=== PATIENT | female | born 1950 | race American Indian/Alaskan Native ===

== ENCOUNTER 2018-11-16 08:36 | Outpatient (CLI) | payer MEDICARE ==
--- NOTE | 2018-11-16 16:32 | Magnetic Resonance Report ---
BILATERAL BREAST MRI WITHOUT AND WITH CONTRAST: 11/16/18 08:36:00 CLINICAL: Recurrent right breast cancer. She underwent a right total mastectomy for stage II right breast cancer, infiltrating mucinous carcinoma in September 2015. She underwent adjuvant chemotherapy and is taking anastrozole. Biopsy of a right chest wall mass on 11/03/18 revealed infiltrating lobular carcinoma grade 3. COMPARISON:08/27/15 MRI. TECHNIQUE: Axial 1.0-mm T1 without, axial high resolution 2.0-mm T2 and axial 1.0-mm dynamic Vibrant high-resolution postcontrast T1 fat saturation sequences on a 1.5 Eda magnet. The examination was performed with an 8 channel dedicated [employer] breast coil. Post processing with CAD and subtraction was performed on an [employer] workstation. 18.0 cc of Multihance was injected without incident for the contrast portion of the exam. Consent was obtained prior to the administration of the contrast. FINDINGS: Right: Redundant soft tissue of the chest wall and an irregular enhancing mass contiguous to the pectoral muscle. A thin fat plane separates the mass from the pectoral muscle on T2 sequences. The mass measures 6.2 x 4.7 x 3.4 cm and contains a biopsy clip. It demonstrates heterogeneous enhancement with mixed kinetics, 188% peak enhancement, 24% type I persistent, 58% type II plateau and 18% type III washout waveforms. One suspicious right axillary lymph node with an irregular cortex measures 1.0 cm. No suspicious internal mammary lymph nodes. Left: Minimal background parenchymal enhancement. No mass or suspicious enhancement. No suspicious left axillary or left internal mammary lymph nodes. IMPRESSION: 1. A 6.2 cm x 4.7 cm x 3.4 cm right chest wall recurrent breast cancer. 2. One suspicious right axillary lymph node. 3. Negative left breast. RIGHT BI-RADS 6 -- Known Cancer LEFT BI-RADS 1 - - Negative
== END 2018-11-16 08:37 | disposition home or self-care (01) ==
LOC: SPVIMAG 08:36
PROVIDERS: ATTEND Surgery
DX: C50.411 Malignant neoplasm of upper-outer quadrant of right female breast (principal)
CPT/HCPCS: A9577; C8908; 77049

== ENCOUNTER 2018-12-11 08:52 | Outpatient (CLI) | payer MEDICARE ==
--- NOTE | 2018-12-11 11:07 | Ultrasound Report ---
THYROID ULTRASOUND:12/11/18 08:52:00 CLINICAL: History of right breast cancer with a recent chest wall recurrence and left thyroid nodules identified on recent PET/CT. History of right thyroidectomy. COMPARISON: [facility] PET/CT 11/17/18. The report describes a multinodular left thyroid lobe with a single FDG avid nodule FINDINGS: High-resolution ultrasound demonstrated an enlarged multinodular left thyroid. The largest thyroid nodule is a mildly heterogeneous slightly hypoechoic mass in the midportion of the gland measuring 2.7 x 1.4 x 2.1 cm. A second more medial nodule with similar echo pattern in the mid left thyroid lobe measures 1.2 x 0.9 x 0.9 cm. Both of these demonstrate a relatively large amount of diffuse blood flow by color Doppler. An inferior solid hypoechoic left thyroid nodule measures 1.7 x 1.5 x 1.4 cm and demonstrates no central blood flow by color Doppler. No right thyroid lobe. IMPRESSION: An enlarged multinodular left thyroid lobe with a dominant 2.7 cm nodule. This probably correlates with the FDG avid nodule. Recommend either close followup with a repeat ultrasound in 6 months to reevaluate the size of nodules or ultrasound-guided FNA of the two largest left nodules.
== END 2018-12-11 08:53 | disposition home or self-care (01) ==
LOC: SPVWC 08:52
PROVIDERS: ATTEND Surgery
DX: E04.2 Nontoxic multinodular goiter (principal); C50.411 Malignant neoplasm of upper-outer quadrant of right female breast
CPT/HCPCS: 76536

== ENCOUNTER 2018-12-19 07:55 | Day surgery (SDC) | payer MEDICARE ==
[2018-12-19] MEDS ORDERED: XYLOCAINE 1% 20 mL ONE (09:38)
--- NOTE | 2018-12-19 10:38 | Short Stay Summary ---
Short Stay Documentation Date of service: 12/19/18 Narrative H&P: left thyroid nodules - History Principal diagnosis: Left thyroid nodules Past Medical History: other (breast cancer, goiter...s/p right thyroidectomy) - Allergies and Medications Current Medications: Allergies chocolate flavor Allergy (Unverified 12/19/18 07:56) Itching Home Medications Medication Instructions Recorded Confirmed Last Taken Type Anastrozole (Nf) [Arimidex (Nf)] 1 mg PO DAILY 12/19/18 12/19/18 12/18/18 History 1mg Cholecalciferol (Vitamin D3) 1 tab PO DAILY 12/19/18 12/19/18 12/18/18 History [Vitamin D3] 1 tab Meloxicam 15 mg PO DAILY 12/19/18 12/19/18 12/18/18 History 15mg Turmeric 1 tab PO DAILY 12/19/18 12/19/18 12/18/18 History 1 tab Vitamin B-12 1 tab PO DAILY 12/19/18 12/19/18 12/18/18 History 1 tab hydroCHLOROthiazide [HCTZ] 25 mg PO DAILY 12/19/18 12/19/18 12/18/18 History 25mg - Physical exam General appearance: no acute distress HEENT: Atraumatic, Mucous membr. moist/pink, Other (no obvious cervical mass on inspection) - Brief post op/procedure progress note Date of procedure: 12/19/18 Pre-op diagnosis: left thyroid nodules Post-op diagnosis: same Procedure: US thyroid FNA x 2 Anesthesia: local Findings: two dominant nodules in left thyroid for FNA Surgeon: BROOKE MATHEWS Estimated blood loss: none Pathology: list (FNA x 2 on two thryoid nodules) Specimen disposition: to lab Condition: stable - Hospital course Hospital course: uneventful - Disposition Condition at discharge: Good Disposition: DC-01 TO HOME OR SELFCARE Short Stay Discharge Plan Follow up with: ARVIN ANGULO MD [Primary Care Provider] - 7 Days
[2018-12-19 11:07] VITALS: BP 140/60
--- NOTE | 2018-12-19 11:48 | Ultrasound Report ---
ULTRASOUND BIOPSY THYROID HISTORY: Left thyroid nodules, breast cancer, goiter, previous right thyroidectomy. DESCRIPTION OF PROCEDURE: Informed consent was obtained. Sterile technique was utilized. 1% lidocaine for skin anesthesia. The ultrasound thyroid scan dated 12/11/18 was reviewed. 2 nodules were selected for fine needle aspiration. Within the mid left thyroid lobe, fine needle aspiration was performed on a 2.9 x 1.4 x 1.9 cm solid nodule. Within the inferior left thyroid lobe, fine needle aspiration was performed on a 1.8 x 1.7 x 1.5 cm hypoechoic, complex nodule. The samples were deemed adequate by the pathologist on site. No complications. IMPRESSION: Successful ultrasound-guided fine needle aspiration of the 2 dominant nodules in the mid and inferior left thyroid lobe as described.
== END 2018-12-19 11:12 | disposition home or self-care (01) ==
LOC: CATHLABREC 07:55 → EDSTATUS 09:00 → CATHLABREC 11:12
PROVIDERS: ATTEND Surgery
DX: E04.1 Nontoxic single thyroid nodule (principal); E04.9 Nontoxic goiter, unspecified; C50.411 Malignant neoplasm of upper-outer quadrant of right female breast; F17.210 Nicotine dependence, cigarettes, uncomplicated; I10 Essential (primary) hypertension; M19.90 Unspecified osteoarthritis, unspecified site; Z85.89 Personal history of malignant neoplasm of other organs and systems; Z79.899 Other long term (current) drug therapy; Z98.42 Cataract extraction status, left eye; Z98.41 Cataract extraction status, right eye; Z90.11 Acquired absence of right breast and nipple; Z98.51 Tubal ligation status; Z90.710 Acquired absence of both cervix and uterus; Z87.442 Personal history of urinary calculi; Z98.890 Other specified postprocedural states; Z88.8 Allergy status to other drugs, medicaments and biological substances
CPT/HCPCS: 10005; 60100; 76942; 88112; 88172; 88173; 88305

== ENCOUNTER 2019-01-17 05:57 | Observation (INO) | payer MEDICARE ==
[2019-01-17] MEDS ORDERED: NACL BACTERIOSTATIC INFILTRATI ONE (06:35)
[2019-01-17] MEDS ORDERED: LACTATED RINGERS 1,000 ML IV SCH ×2 (07:00→13:00)
[2019-01-17] MEDS ORDERED: XYLOCAINE 1% 20 mL ONE ×2 (07:12→07:43)
[2019-01-17] MEDS ORDERED: MARCAINE 0.25% INFILTRATI ONE (07:12)
[2019-01-17] MEDS ORDERED: ANCEF/STERILE WATER 2 GM/20 ML IV NR (07:20)
[2019-01-17] MEDS ORDERED: ZOFRAN ONE (07:31)
[2019-01-17] MEDS ORDERED: SUBLIMAZE ONE ×2 (07:31→10:49)
[2019-01-17] MEDS ORDERED: DECADRON ONE ×2 (07:31→07:43)
[2019-01-17] MEDS ORDERED: XYLOCAINE MPF 2% ONE (07:31)
[2019-01-17] MEDS ORDERED: DIPRIVAN 10 MG/ML IV ONE (07:32)
--- NOTE | 2019-01-17 07:39 | Anesthesia Consultation ---
Anesthesia Consult and Med Hx Date of service: 01/17/19 - Airway Anesthetic Teeth Evaluation: Dentures ROM Head & Neck: Adequate Mental/Hyoid Distance: Adequate Mallampati Class: Class II Intubation Access Assessment: Good - Pulmonary Exam CTA: Yes - Cardiac Exam Cardiac Exam: No Murmur - Pre-Operative Health Status ASA Pre-Surgery Classification: ASA3 Proposed Anesthetic Plan: General Nerve Block: PEC Block - Pulmonary Hx Smoking: Yes (1/2 PPD X 40 YRS) Hx Asthma: Yes (asthma as a child) - Cardiovascular System Hx Hypertension: Yes (2009) - Central Nervous System Hx Psychiatric Problems: No - Hematic Hx Anemia: No - Other Systems Hx Alcohol Use: Yes (OCCA WINE) Hx Substance Use: No Hx Cancer: Yes
[2019-01-17] MEDS ORDERED: MARCAINE 0.5% INFILTRATI ONE (07:42)
[2019-01-17] MEDS ORDERED: NEURONTIN ONE ×2 (07:44→07:59)
[2019-01-17] MEDS ORDERED: VERSED ONE (07:44)
[2019-01-17] MEDS ORDERED: PEPCID IV ONE (07:45)
[2019-01-17] MEDS ORDERED: PEPCID IV NR (09:00)
[2019-01-17] MEDS ORDERED: VERSED IV NR (09:00)
[2019-01-17] MEDS ORDERED: NEURONTIN PO NR (09:00)
[2019-01-17] MEDS ORDERED: WATER FOR IRRIG STERILE IR ONE (09:11)
[2019-01-17] MEDS ORDERED: LACTATED RINGERS 1,000 ML ONE (10:42)
--- NOTE | 2019-01-17 11:17 | Mammography Report ---
SPECIMEN RADIOGRAPH RIGHT BREAST: 01/17/19 05:57:00 CLINICAL: Surgical excision of recurrent cancer of the right chest wall.. FINDINGS: An irregular mass with a biopsy clip is identified within the specimen. The mass measures approximately 6 x 6 cm. Surgical clips are identified at the margin of the specimen.
[2019-01-17] MEDS ORDERED: ROBINUL ONE (11:48)
[2019-01-17] MEDS ORDERED: ZOFRAN IV PRN (12:04)
[2019-01-17] MEDS ORDERED: PERCOCET 5/325 PO PRN (12:04)
[2019-01-17] MEDS ORDERED: SODIUM CHLORIDE FLUSH SYRINGE 10 ML IV PRN (12:04)
[2019-01-17] MEDS ORDERED: BENADRYL PO PRN (12:04)
[2019-01-17] MEDS ORDERED: REGLAN PO PRN (12:04)
[2019-01-17] MEDS ORDERED: TYLENOL PO PRN (12:04)
--- NOTE | 2019-01-17 12:04 | Short Stay Summary ---
Short Stay Documentation Date of service: 01/17/19 - History H&P: obtained from office - Allergies and Medications Current Medications: Allergies chocolate flavor Allergy (Intermediate, Verified 01/15/19 17:25) Anaphylaxis doxepin Allergy (Verified 01/17/19 07:09) Itching propoxyphene [From Darvocet-N] Allergy (Verified 01/15/19 17:25) Itching Home Medications Medication Instructions Recorded Confirmed Last Taken Type Anastrozole (Nf) [Arimidex (Nf)] 1 mg PO DAILY 12/19/18 01/15/19 01/15/19 History Meloxicam 15 mg PO DAILY 12/19/18 01/15/19 01/07/19 History hydroCHLOROthiazide [HCTZ] 25 mg PO DAILY 12/19/18 01/15/19 01/15/19 History Acetaminophen [Tylenol Arthritis] 650 mg PO Q6H PRN 01/15/19 01/17/19 01/15/19 History Acetaminophen [Tylenol Extra 500 mg PO Q4H PRN 01/15/19 01/17/19 01/15/19 History Strength] Cholecalciferol Vit D3 [Vitamin D3 1,000 unit PO QDAY 01/15/19 01/15/19 01/15/19 History 1,000 UNIT TAB] Cyanocobalamin (Vitamin B-12) 1,000 mcg PO QDAY 01/15/19 01/15/19 01/15/19 H istory [Vitamin B-12] Turmeric Root Extract [Turmeric 500 mg PO QDAY 01/15/19 01/15/19 01/15/19 History Curcumin] Active Medications Cefazolin Sodium (Ancef/Sterile Water 2 Gm/20 Ml) 2 gm IV PREOP NR Stop: 01/17/19 15:00 Celecoxib (Celebrex) 200 mg PO PREOP NR Stop: 01/17/19 21:00 Famotidine (Pepcid) 20 mg IV PREOP NR Stop: 01/17/19 21:00 Gabapentin (Neurontin) 600 mg PO PREOP NR Stop: 01/17/19 21:00 Lactated Ringer's (Lactated Ringers) 1,000 mls @ 100 mls/hr IV DIRECT ELISSA Last Admin: 01/17/19 07:00 Dose: 100 mls/hr Documented by: Midazolam HCl (Versed) 2 mg IV PREOP NR Stop: 01/17/19 21:00 - Brief post op/procedure progress note Date of procedure: 01/17/19 Pre-op diagnosis: Right chest wall recurrent breast cancer Post-op diagnosis: same Procedure: Right chest wall mass excision with ALND Anesthesia: GETA Findings: Right chest wall mass at least 5 cm and adherent to muscle with ALND performed as well Surgeon: POLLY ROE Estimated blood loss: 50-100ml Pathology: list (right chest wall mass, ALND) Specimen disposition: to lab Condition: stable - Disposition Condition at discharge: Good Disposition: DC/TX-02 SHRT-TRM GEN HOSP IP Short Stay Discharge Plan Activity: other (no mobility of right arm-wear sling; no heavy lifting) Diet: regular Wound: keep clean and dry Follow up with: ARVIN ANGULO MD [Primary Care Provider] - 7 Days POLLY ROE MD [Staff Physician] - 7 Days
[2019-01-17] MEDS ORDERED: MORPHINE IV PRN (12:05)
--- NOTE | 2019-01-17 15:52 | Operative Report ---
Operative Report Operative Report: Operative Report: January 17, 2019 Preoperative diagnosis: Recurrent breast cancer of the upper outer right chest wall Postoperative diagnosis: Same Procedure: Right chest wall excision of chest wall mass of the upper outer quadrant and ALND Surgeon: Amberly Contreras MD Anesthesia: General Findings: Right chest wall mass adherent to lateral pectoralis muscle Complications: None Drains: x2 19 Fr LOKESH EBL: 50 ml Disposition: PACU in good condition Indications for operative procedure: This is a 68 year old lady with recurrent right breast cancer of the upper outer chest wall-chest wall mass of 4-5 cm. She underwent a right total mastectomy with SLNB by Dr. Nichols in 2016 for Stage I breast cancer and completed adjuvant chemotherapy due to high Oncotype DX score. Recommendations are to proceed with right chest wall mass excision and probable ALND. She understands the role of adjuvant radiation therapy and that chemotherapy may be recommended. She wished to proceed with the above procedure. Procedure in detail: Anesthesia placed a right pectoral block. Patient was then taken to the operating room. Gen. anesthesia was administered. The right chest was prepped and draped in the normal sterile operative fashion. Timeout was performed. Attention was then taken towards the right chest, palpable 4-5 cm chest wall mass of the upper outer chest was noted with mass closely adherent to skin. Ultrasound was used as well. A lateral skin incision was made with a 15 bl cassi knife encompassing the mass and skin and dissection taken down to subcutaneous tissues. First began raising of the superior flap to least 2 cm superior to the mass to the level of the clavicle with dissection taken down posterior to the pectoralis muscle followed by raising of the medial flap to least 2 cm medial from the mass dissecting down to the pectoralis muscle followed by raising of the inferior flap 2 cm from the mass and dissection taken down to the pectoralis muscle. The mass noted to be adherent to the pectoralis major and minor muscle with muscle resected in order to remove the mass. Attention was then taken towards the mass that was adherent to the surrounding tissues superior laterally and immediately inferior to the axillary vein. The mass was carefully dissected down inferiorly from the axillary vein then followed by removal of lymph nodes. Dissection was taken very carefully to ensure the long thoracic nerve and thoracodorsal bundle were not injured. Both nerves were noted and were unharmed. Then proceeded with axillary lymph node dissection with nodes taken inferior to the axillary vein, mediallay from the dorsal bundle and laterally from the long thoracic nerve and inferior from the latissimus dorsi muscle. Bulky nodes were present and attached to chest wall mass. Patient with prior SLNB in 2016 with 5 lymph nodes removed. The mass was somewhat adherent within the axilla that was appropriately dissected free and removed. Significant fibrotic tissue was adherent superiorly and inferior to the axillary vein with dissection taken very carefully to assure that the vein was not injured. The upper inner portion of the mass was noted to be adherent posteriorly to the pectoralis minor muscle with muscle resected to ensure en bloc removal with the aide of the bovie cautery (resection of pectoralis major and minor muslces). The mass was sent to radiology of present illness and pathology. Hemostasis was obtained. The axillary and chest wall cavity was appropriately irrigated and suctioned. Hemostasis was noted. 2 drains were placed one in the axilla and one within the chest wall. Skin flaps were then appropriately raised superiorly to the clavicle, medially to the sternum and inferiorly to the superior portion of the abdominal wall to allow skin closure. The subcutaneous tissues were approximated and closed with interrupted 2-0 V icryl and the skin brought together and closed using a running 4-0 Monocryl followed by placement of PICCO wound VAC dressing. Patient's arm was placed into a sling to ensure immobility to ensure no wound breakdown. The mass was noted to be at least 5-6 cm with chest wall involvment of the lateral pectoralis muscles. She tolerated surgery very well and was awakened from anesthesia without any c omplications and transferred to PACU in good condition.
[2019-01-17] MEDS: COLACE PO SCH (21:54)
--- NOTE | 2019-01-18 08:00 | Progress Note ---
Assessment and Plan This is a 68 year old lady POD#1 right chest wall mass-recurrent breast cancer wide local excision and ALND. 1. Pain in good control. 2. Right chest incision healing well. 3. LOKESH drain education. 4. OOB to hallway. 5. D/C planning for today. Subjective Date of service: 01/18/19 Principal diagnosis: Recurrent right chest wall breast cancer Interval history: POD#1 right chest wall mass wide local excision with ALND Objective - Constitutional Vitals: Vital Signs - 12hr 01/17/19 01/17/19 01/18/19 20:00 20:30 00:49 Temperature 98.3 F 98.4 F Pulse Rate 62 62 Respiratory 16 20 20 Rate Blood Pressure 114/53 Blood Pressure 105/56 [Left] O2 Sat by Pulse 97 97 Oximetry 01/18/19 04:50 Temperature 98.0 F Pulse Rate 54 L Respiratory 20 Rate Blood Pressure Blood Pressure 115/53 [Left] O2 Sat by Pulse 96 Oximetry General appearance: Present: no acute distress - EENT Eyes: PERRL, EOM intact ENT: hearing intact, clear oral mucosa, dentition normal Ears: bilateral: normal - Neck Neck: supple, normal ROM - Respiratory Respiratory effort: normal Respiratory: bilateral: CTA - Breasts Breasts: other (right incision with PICCO dressing intact, LOKESH drains to bulb suction; no hematoma) - Cardiovascular Rhythm: regular Extremities: no ischemia, pulses intact, pulses symmetrical, No edema, normal temperature, normal color, Full ROM - Gastrointestinal General gastrointestinal: Present: soft, non-tender, non-distended Rectal Exam: deferred - Genitourinary Female genitourinary: deferred - Integumentary Integumentary: clear, warm, dry - Musculoskeletal Musculoskeletal: strength equal bilaterally - Neurologic Neurologic: CNII-XII intact, moves all extremities, gait normal - Psychiatric Psychiatric: appropriate mood/affect, intact judgment & insight, memory intact, cooperative Medications & Allergies - Medications Allergies/Adverse Reactions: Allergies chocolate flavor Allergy (Intermediate, Verified 01/15/19 17:25) Anaphylaxis doxepin Allergy (Verified 01/17/19 07:09) Itching propoxyphene [From Darvocet-N] Allergy (Verified 01/15/19 17:25) Itching Home Medications: Home Medications Medication Instructions Recorded Confirmed Last Taken Type Anastrozole (Nf) [Arimidex (Nf)] 1 mg PO DAILY 12/19/18 01/15/19 01/15/19 History Meloxicam 15 mg PO DAILY 12/19/18 01/15/19 01/07/19 History hydroCHLOROthiazide [HCTZ] 25 mg PO DAILY 12/19/18 01/15/19 01/15/19 History Acetaminophen [Tylenol Arthritis] 650 mg PO Q6H PRN 01/15/19 01/17/19 01/15/19 History Acetaminophen [Tylenol Extra 500 mg PO Q4H PRN 01/15/19 01/17/19 01/15/19 History Strength] Cholecalciferol Vit D3 [Vitamin D3 1,000 unit PO QDAY 01/15/19 01/15/19 01/15/19 History 1,000 UNIT TAB] Cyanocobalamin (Vitamin B-12) 1,000 mcg PO QDAY 01/15/19 01/15/19 01/15/19 History [Vitamin B-12] Turmeric Root Extract [Turmeric 500 mg PO QDAY 01/15/19 01/15/19 01/15/19 History Curcumin] oxyCODONE /ACETAMINOPHEN [Percocet 1 tab PO Q6HR PRN #25 tablet 01/18/19 Unknown Rx 5/325] Active Medications: Generic Name Dose Route Start Last Admin Trade Name Freq PRN Reason Stop Dose Admin Acetaminophen 650 mg 01/17/19 12:04 Tylenol PO Q6H PRN Pain MILD(1-3)/Fever >100.5/HAYWOOD Diphenhydramine HCl 25 mg 01/17/19 12:04 Benadryl PO Q8H PRN Itching Docusate Sodium 100 mg 01/17/19 22:00 01/17/19 21:54 Colace PO 100 mg BID ELISSA Administration Lactated Ringer's 1,000 mls @ 100 mls/hr 01/17/19 07:00 01/17/19 07:00 Lactated Ringers IV 100 mls/hr DIRECT ELISSA Administration Lactated Ringer's 1,000 mls @ 125 mls/hr 01/17/19 13:00 Lactated Ringers IV DIRECT ELISSA Metoclopramide HCl 10 mg 01/17/19 12:04 Reglan PO Q6H PRN Nausea And Vomiting Morphine Sulfate 2 mg 01/17/19 12:05 Morphine IV Q4H PRN Pain, Moderate (4-6) Ondansetron HCl 4 mg 01/17/19 12:04 Zofran IV Q8H PRN N/V unrelieved by Chasity Oxycodone/Acetaminophen 1 tab 01/17/19 12:04 Percocet 5/325 PO Q6H PRN Pain, Moderate (4-6) Sodium Chloride 10 ml 01/17/19 12:04 Sodium Chloride Flush Syringe 10 Ml IV PRN PRN LINE FLUSH
[2019-01-18] MEDS: COLACE PO SCH (09:24)
[2019-01-18 13:13] VITALS: BP 135/45
== END 2019-01-18 13:25 | disposition home or self-care (01) ==
LOC: OR 05:57 → OB 12:04
PROVIDERS: ADMIT Surgery; ATTEND Surgery
DX: C79.81 Secondary malignant neoplasm of breast (principal); C80.1 Malignant (primary) neoplasm, unspecified; I10 Essential (primary) hypertension; K21.9 Gastro-esophageal reflux disease without esophagitis; M19.019 Primary osteoarthritis, unspecified shoulder; E78.2 Mixed hyperlipidemia; F17.210 Nicotine dependence, cigarettes, uncomplicated
CPT/HCPCS: 00400; 19120; 38500; 64450; 76098; 88307; 88341; 88342; G0378; J0690; J0735; J1100; J2250; J2405; J2704; J3010; J7120

== ENCOUNTER 2019-03-07 05:54 | Day surgery (SDC) | payer MEDICARE ==
[~2019-03-07 05:54] MED LIST: ANCEF/STERILE WATER 2 GM/20 ML 2 GM/20 ML SYRINGE IV NR
[2019-03-07] MEDS ORDERED: ANCEF/STERILE WATER 2 GM/20 ML 2 GM/20 ML SYRINGE IV ONE (06:37)
[2019-03-07] MEDS ORDERED: NACL BACTERIOSTATIC INFILTRATI ONE (06:37)
[2019-03-07] MEDS ORDERED: LACTATED RINGERS 1,000 ML IV SCH (07:00)
[2019-03-07 07:29] LABS: Basophils % (Auto) 0.9 % (0.0-1.8); Eosinophils # (Auto) 0.1 K/mm3 (0.0-0.4); Eosinophils % (Auto) 1.8 % (0.0-4.3); Hematocrit 37.9 % (30.3-42.9); Hemoglobin 13.2 gm/dl (10.1-14.3); Lymphocytes # (Auto) 1.3 K/mm3 (1.2-5.4); Lymphocytes % (Auto) 27.8 % (13.4-35.0); Mean Corpuscular HGB Conc 35 % (30-34); Mean Corpuscular Volume 96 fl (79-97); Monocytes # (Auto) 0.5 K/mm3 (0.0-0.8); Monocytes % (Auto) 10.9 % (0.0-7.3); Platelet Count 244 K/mm3 (140-440); Red Blood Count 3.96 M/mm3 (3.65-5.03); Red Cell Distribution Width 12.5 % (13.2-15.2)
[2019-03-07] MEDS ORDERED: MARCAINE 0.25% INFILTRATI ONE ×2 (07:37→08:15)
[2019-03-07] MEDS ORDERED: DIPRIVAN 10 MG/ML IV ONE (07:40)
[2019-03-07] MEDS ORDERED: SUBLIMAZE ONE (07:40)
[2019-03-07] MEDS ORDERED: WATER FOR IRRIG STERILE IR ONE (08:15)
--- NOTE | 2019-03-07 08:31 | Anesthesia Consultation ---
Anesthesia Consult and Med Hx Date of service: 03/07/19 - Airway Anesthetic Teeth Evaluation: Good ROM Head & Neck: Adequate Mental/Hyoid Distance: Adequate Mallampati Class: Class III Intubation Access Assessment: Possibly Difficult (previous GA with LMA 4) - Pulmonary Exam CTA: Yes - Cardiac Exam Cardiac Exam: RRR - Pre-Operative Health Status ASA Pre-Surgery Classification: ASA3 Proposed Anesthetic Plan: General - Pulmonary Hx Smoking: Yes (1/2 PPD X 40 YRS) Hx Asthma: Yes (childhood) Hx Respiratory Symptoms: No COPD: No Hx Sleep Apnea: No - Cardiovascular System Hx Hypertension: Yes Hx Heart Attack/AMI: No Hx Percutaneous Transluminal Coronary Angioplasty (PTCA): No Hx Cardia Arrhythmia: No - Central Nervous System CVA: No Hx Psychiatric Problems: No - Gastrointestinal Hx Gastroesophageal Reflux Disease: No - Endocrine Hx Renal Disease: No Hx Liver Disease: No Hx Insulin Dependent Diabetes: No Hx Non-Insulin Dependent Diabetes: No Hx Thyroid Disease: Yes (hx goiter which was removed. No thyroid supplementation.) - Hematic Hx Anemia: No - Other Systems Hx Alcohol Use: Yes (OCCA WINE) Hx Substance Use: No Hx Cancer: Yes (recurrent breast ca) Hx Obesity: Yes - Additional Comments Anesthesia Medical History Comments: No hx anesthetic complications.
--- NOTE | 2019-03-07 08:31 | Anesthesia Day of Surgery ---
Anesthesia Day of Surgery - Day of Surgery Patient Examined: Yes Patient H&P Reviewed: Yes Patient is NPO: Yes
--- NOTE | 2019-03-07 09:59 | Operative Report ---
Operative Report Operative Report: Operative Report: Date of Service: March 07, 2019 Preoperative diagnosis: Right chest wall recurrent breast cancer with positive margin Postoperative diagnosis:Same Procedure: Right mastectomy flap/excision margin revision Surgeon: Amberly Contreras MD Anesthesia: General Findings: Cephalad and posterior margin revision Complications: None EBL: Minimal Disposition: Plastic surgeon proceeded with skin closure Indications for operative procedure: This is a 68 year old lady with recurrent right breast cancer of the upper outer chest wall with chest wall mass recurrence of 6 cm. She underwent a right total mastectomy with SLNB by Dr. Nichols in 2016 for Stage I breast cancer and completed adjuvant chemotherapy due to high Oncotype DX score. In December 2018 she then underwent right chest wall mass excision with final pathology of cephalad and posterior margins positive. The adjacent subcutaneous tissues from the skin of cephalad margin were positive for tumor of 7 mm of ILCA-infiltration of cells with no mass present. The chest wall mass was excised from pectoralis muslce. Recommendations are to proceed with flap/excision margin revision and additional excision of pectoralis muslce followed by adjuvant XRT. Patient was seen as well by plastic surgery if rotational flap needed at the time of surgery if skin is unable to be approximated and closed. She understands the role of adjuvant radiation therapy and that chemotherapy may be recommended. She wished to proceed with the above procedure. Procedure in detail: The patient was taken to the operating room and was placed supine. General anesthesia was administered. The right chest wall was prepped and draped in the normal sterile operative fashion. Timeout was performed. Skin markings were made and the prior skin incisoin was extended by 9 cm and additional 3 cm of skin was marked for the revised cephalad margin. Skin incision was made through the prior breast incision laterally and then extended by 9 cm with a 15 blade knife. Subcutaneous tissues were opened with the aid of the Bovie cautery and knife. Superior skin flaps were raised to the level of the clavicle and dissection taken down posteriorly to the pectoralis muscle. The inferior cephalad margin was raised as well with dissection taken down posteriorly to the pectoralis muslce. The most lateral margin was lateral to the pectoralis muslce. Cephalad margin was then revised using the Bovie cautery followed by revision of the posterior margin. Cephalad margin was then removed posteriorly from the pectoralis muslce using the bovie cautery. Specimen was marked and sent to pathology. Then proceeded with posterior margin revision with removal of additional pectoralis major muscle. Specimen was marked and sent to pathology. Hemostasis was obtained with the Bovie cautery. Plastic surgery then proceed with skin closure given area not approximating well. Rotational flap was not needed given skin was approximated and closed after additional skin flaps inferiorly were raised from the upper abdomen. She tolerated surgery ve ry well and was awaken from anesthesia without any complications and transported to PACU in good condition.
[2019-03-07] MEDS ORDERED: ZOFRAN ONE (10:14)
[2019-03-07] MEDS ORDERED: DECADRON ONE (10:14)
[2019-03-07] MEDS ORDERED: QUELICIN ONE (10:14)
[2019-03-07] MEDS ORDERED: NEO SYNEPHRINE/NS Syringe(OR USE) IV ONE (10:14)
[2019-03-07] MEDS ORDERED: XYLOCAINE MPF 2% ONE (10:14)
[2019-03-07] MEDS ORDERED: LACTATED RINGERS 1,000 ML ONE (10:14)
[2019-03-07] MEDS ORDERED: ZEMURON IV ONE (10:14)
[2019-03-07] MEDS: DILAUDID IV PRN ×2 (10:28→10:38)
--- NOTE | 2019-03-07 10:42 | Short Stay Summary ---
Short Stay Documentation Date of service: 03/07/19 - History H&P: obtained from office - Allergies and Medications Current Medications: Allergies chocolate flavor Allergy (Intermediate, Verified 03/02/19 14:28) Anaphylaxis doxepin Allergy (Verified 03/02/19 14:28) Itching propoxyphene [From Darvocet-N] Allergy (Verified 03/02/19 14:28) Itching Home Medications Medication Instructions Recorded Confirmed Last Taken Type Anastrozole (Nf) [Arimidex (Nf)] 1 mg PO DAILY 12/19/18 03/07/19 02/28/19 History Meloxicam 15 mg PO DAILY 12/19/18 03/02/19 01/07/19 History hydroCHLOROthiazide [HCTZ] 25 mg PO DAILY 12/19/18 03/07/19 03/06/19 History Acetaminophen [Tylenol Arthritis] 650 mg PO Q6H PRN 01/15/19 03/07/19 02/28/19 History Acetaminophen [Tylenol Extra 500 mg PO Q4H PRN 01/15/19 03/07/19 02/28/19 History Strength] Cholecalciferol Vit D3 [Vitamin D3 1,000 unit PO QDAY 01/15/19 03/02/19 03/06/19 History 1,000 UNIT TAB] Cyanocobalamin (Vitamin B-12) 1,000 mcg PO QDAY 01/15/19 03/02/19 03/06/19 H istory [Vitamin B-12] Turmeric Root Extract [Turmeric 500 mg PO QDAY 01/15/19 03/02/19 03/06/19 History Curcumin] oxyCODONE /ACETAMINOPHEN [Percocet 1 tab PO Q6HR PRN #25 tablet 01/18/19 03/07/19 02/04/19 Rx 5/325] HYDROcodone/APAP 5-325 [Ni[place]rara 1 each PO Q6HR PRN #30 tablet 03/07/19 Unknown Rx 5/325] Active Medications Hydromorphone HCl (Dilaudid) 0.5 mg IV Q10MIN PRN PRN Reason: Pain , Severe (7-10) Stop: 03/07/19 20:00 Last Admin: 03/07/19 10:28 Dose: 0.5 mg Documented by: Cefazolin Sodium (Ancef/Sterile Water 2 Gm/20 Ml) 2 gm in 20 mls @ 80 mls/hr IV PREOP NR; Protocol Stop: 03/07/19 23:00 Lactated Ringer's (Lactated Ringers) 1,000 mls @ 100 mls/hr IV DIRECT ELISSA Last Admin: 03/07/19 06:55 Dose: 100 mls/hr Documented by: - Brief post op/procedure progress note Date of procedure: 03/07/19 Pre-op diagnosis: 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 Post-op diagnosis: same Procedure: Right chest wall flap margin revision Anesthesia: GETA Findings: cephalad and posterior margin revision Surgeon: POLLY ROE Estimated blood loss: minimal Pathology: list (margin revision-cephalad and posterior) Specimen disposition: to lab Condition: stable - Disposition Condition at discharge: Good Disposition: DC-01 TO HOME OR SELFCARE Short Stay Discharge Plan Activity: other (no heavy lifting) Diet: regular Wound: keep clean and dry Follow up with: ARVIN ANGULO MD [Primary Care Provider] - 7 Days POLLY ROE MD [Staff Physician] - 7 Days Prescriptions: HYDROcodone/APAP 5-325 [Niobrara 5/325] 1 each PO Q6HR PRN #30 tablet PRN Reason: Pain
--- NOTE | 2019-03-07 10:46 | Operative Report ---
PREOPERATIVE DIAGNOSIS: Recurrent right breast cancer. POSTOPERATIVE DIAGNOSIS: Recurrent right breast cancer. PROCEDURE: 1. Right breast reconstruction using adjacent tissue transfer, total area of 300 square cm. 2. Application of NAOMI negative pressure wound VAC device of the right breast for postoperative wound healing. SURGEON: Wayne Michaels MD TELEGRAPH EQUIPMENT MAINTAINER: None. ANESTHESIA: General. OPERATIVE INDICATIONS: This is a 68-year-old female with a history of recurrent right-sided breast cancer who had undergone a recurrent resection by Dr. Contreras about 6 weeks ago. Unfortunately, pathology came back with some concern for some positive margins that required Dr. Contreras to return to the operating room for an additional resection of the superior margin heading up towards the clavicle. There was some concern whether or not the issue would be able to close the defect and so she asked me to evaluate the patient for possible reconstructive option. After discussion with the patient, the two options we came up were depending on the extent of the defect if I would be able to mobilize the inferior abdominal tissue and lower chest wall tissue and an adjacent tissue transfer fashion to close the defect. If not, the backup plan would be a latissimus dorsi myocutaneous flap. Risks and benefits of the surgery were discussed with the patient. She agreed. OPERATIVE DETAILS: Prior to taking back, the patient was taken to the Operating Room and I marked her for a latissimus dorsi flap and even though we would need it. We then brought her to the operating room and placed supine on the table. General anesthesia and preoperative antibiotics were administered. The patient was prepped and draped in usual sterile fashion. Timeout was called verifying the name of the patient, the operation being performed and the side and site of the operation. Dr. Contreras performed her portion of the operation, which would be dictated separately. When I came into the room, she had resected her superior margin, had taken out about 2-3 cm of skin superiorly and some underlying subcutaneous tissue. It was a relatively small specimen. I felt that it was probably likely I was going to be able to get it closed primarily using the adjacent tissue transfer. I went ahead and opened the remainder of the incision to allow for rotation. I then elevated inferiorly the entire chest wall flap going past her old transverse mastectomy scar and then proceeding further down on to the abdominal wall to elevate all that tissue. Total area was approximately 15 x 20 cm, approximately 300 square cm of adjacent tissue transfer. I was then able to rotate and advance that inferior flap superiorly and laterally in order to close the defect. I went and placed a 15-Sami Srikanth drain achieved hemostasis, irrigated and began with closure. We used 2-0 Vicryl for the deeper layers to take the tension off of the closure and then used a 2-0 Monocryl V-Loc barbed suture to close the skin. We then applied a NAOMI negative pressure wound VAC device for postoperative wound healing, had a good seal, placed the drain to bulb suction. She tolerated the procedure well and was awakened from general anesthesia, transferred to PACU in stable condition. ESTIMATED BLOOD LOSS: Minimal. COMPLICATIONS: None. SPECIMENS: None. JOB# [id number] MOHAMUD/CED
[2019-03-07] MEDS ORDERED: NORCO 5/325 PO PRN (10:57)
[2019-03-07 11:50] VITALS: BP 133/68
--- NOTE | 2019-03-07 17:33 | Post Anesthesia Evaluation ---
- Post Anesthesia Evaluation Patient Participated: Yes Airway Patent: Yes Stable Respiratory Function: Yes Nausea/Vomiting: No Temp > 96.8F: Yes Pain Manageable: Yes Adequeate Hydration: Yes Anesthesia Complications: No Block Receding Appropriately: Yes Patient on Ventilator: No
== END 2019-03-07 12:30 | disposition home or self-care (01) ==
LOC: OR 05:54 → UNDOADMIN 05:55 → 3A 05:55 → OR 12:30 → EDSTATUS 12:45
PROVIDERS: ATTEND Surgery
DX: C50.911 Malignant neoplasm of unspecified site of right female breast (principal); I10 Essential (primary) hypertension; J45.909 Unspecified asthma, uncomplicated; E66.9 Obesity, unspecified; K21.9 Gastro-esophageal reflux disease without esophagitis; M19.90 Unspecified osteoarthritis, unspecified site; F17.210 Nicotine dependence, cigarettes, uncomplicated; Z72.89 Other problems related to lifestyle; Z98.890 Other specified postprocedural states; Z80.3 Family history of malignant neoplasm of breast; Z79.899 Other long term (current) drug therapy; Z98.41 Cataract extraction status, right eye; Z98.42 Cataract extraction status, left eye; Z68.35 Body mass index [BMI] 35.0-35.9, adult; Z98.51 Tubal ligation status; Z90.710 Acquired absence of both cervix and uterus; Z90.11 Acquired absence of right breast and nipple; Z87.442 Personal history of urinary calculi; Z88.8 Allergy status to other drugs, medicaments and biological substances
CPT/HCPCS: 14301; 14302; 19307; 36415; 85025; 88307; J0330; J0690; J1100; J1170; J2370; J2405; J2704; J3010; J7120